=== PATIENT | male | born 1950 | race Caucasian/White ===

== ENCOUNTER 2020-05-27 05:13 | Inpatient (IN) ==
--- NOTE | 2020-05-04 11:40 | PAT Medication Instructions ---
Medication Instructions Date of Service May 04, 2020 Home Medications ascorbic acid (vitamin C) [Vitamin C] 1 g PO QAM aspirin 81 mg PO QAM atorvastatin [Lipitor] 80 mg PO HS ezetimibe [Zetia] 10 mg PO Q OTHER DAY metoprolol tartrate 50 mg PO BID Continue as directed ezetimibe [Zetia] 10 mg PO Q OTHER DAY DO NOT take the morning of surgery ascorbic acid (vitamin C) [Vitamin C] 1 g PO QAM Take morning of surgery With a small sip of water, OTHERWISE NOTHING TO EAT OR DRINK AFTER MIDNIGHT: aspirin 81 mg PO QAM metoprolol tartrate 50 mg PO BID Take evening before surgery atorvastatin [Lipitor] 80 mg PO HS metoprolol tartrate 50 mg PO BID Other Notes If you have any questions please call us at [phone] or [phone] or [phone] or [phone]
--- NOTE | 2020-05-05 11:41 | Anesthesiology Consultation ---
Date of Service May 05, 2020 Assessment & Plan (1) Encounter for pre-operative examination: Per PAT assessment on 05/05: Travel screen- Lives in [facility]. Travel to [facility] [address] and [facility]. Wears mask in public. No known COVID-19 positive contacts. No current COVID-19 related symptoms. Patient scheduled for preop protocol COVID-19 testing 05/23 (location [facility]). Awaiting results. - ETOH use: 5-6 beers/day (ETOH use only in afternoon/evening, no morning ETOH use) Chart Review Chart Review: Acceptable Risk for Surgery (pending COVID testing) and Patient seen in Pre Admission Testing Teaching & Discussion Pre-Anesthesia Teaching/Discussion Notes: Instructed NPO after midnight before surgery,except medications with 15 cc of water. Medication instructions p rovided according to the PAT guidelines. History Surgery Operation Date: 05/27/20 10:40 Proposed Procedures p Left Total Knee Arthroplasty - Duncan Mathias, Height/Weight Height: 6 ft 2 in Weight: 100.6 kg Allergies Allergy/AdvReac Type Severity Reaction Status Date / Time meperidine AdvReac Unknown Agitated Verified 05/02/20 12:22 Medications Home Medications Medication Instructions Recorded Confirmed Last Taken ascorbic acid (vitamin C) [Vitamin 1 g PO QAM 05/02/20 05/02/20 Unknown C] aspirin 81 mg PO QAM 05/02/20 05/02/20 Unknown atorvastatin [Lipitor] 80 mg PO HS 05/02/20 05/02/20 Unknown ezetimibe [Zetia] 10 mg PO Q OTHER DAY 05/02/20 05/02/20 Unknown metoprolol tartrate 50 mg PO BID 05/02/20 05/02/20 Unknown Past Medical History Medical History (Updated 05/06/20 @ 08:29 by Yaquelin Scruggs) CAD (coronary artery disease) stents x2 (1998)- managed by PCP, good functional status (no chest pain or sob with flight of stairs) Chronic right shoulder pain History of anxiety History of neuroma spinal ENTERPRISE (hard of hearing) HTN (hypertension) Hyperlipemia Myocardial Infarction 1998 Neuropathy Osteoarthritis Exercise / Class Metabolic Activity II 4-5 Yardwork/Stairs/Walk up hill (one flight of stairs (no chest pain, no sob)) Past Family History Family History Aunt Diabetes Uncle Diabetes Other No family history of adverse response to anesthesia Past Surgical History Surgical History (Updated 05/05/20 @ 11:58 by Yaquelin Scruggs) History of cardiac cath 1998 - [place] - 2 STENTS - no longer follows w/ cardio - PCP manages History of cataract surgery History of colonoscopy with polypectomy History of elbow surgery Rt History of foot surgery mult toe surgeries - BL History of hemorrhoidectomy History of incision and drainage Rt thumb (osteomyelitis) History of inguinal hernia repair History of laminectomy History of oral surgery Past Anesthesia History No Family Hx of Anesthesia Complications and Other (claustraphobic/"freaked out" with anesthesia induction with single surgery (no issues with other surgeries)) History of PONV No Hx of PONV and No Hx of Motion Sickness Social History Smoking Status: Never smoker Do You Dip or Chew Tobacco: No Hx Alcohol Use: Yes Alcohol type: beer alcohol intake frequency: 3 or more drinks per day (5-6 beers/day (ETOH use only in afternoon/evening, no morning ETOH use)) Hx Substance Use: No substance use type: does not use Review of Systems Patient denies chest pain, shortness of breath, dyspnea on exertion, joint pain, reflux, cough, wheezing, palpitations. Physical Exam PHYSICAL Full neck and c-spine range of motion. Full TMJ range of motion. TMD 3 finger breaths Mallampati Score 3 Lungs: clear throughout to auscultation Cardiac: regular rate and rhythm Spine: normal Carotid arteries: negative bruit Extremities: no edema Testing Laboratory Results 05/05/20 12:13 05/05/20 12:13 PT 11.2 Seconds (9.0-12.0) 05/05/20 12:13 INR 1.1 (0.9-1.1) 05/05/20 12:13 APTT 28.2 Seconds (21.0-31.0) 05/05/20 12:13 Blood Type O Negative 05/05/20 12:13 Antibody Screen NEGATIVE 05/05/20 12:13 Electrocardiogram Date: 05/05/20 SR with first degree AVB at 63bpm. Moderate voltage criteria for LVH, may be normal variant. Chest X-Ray Date: 05/05/20 Findings: + NAD
--- NOTE | 2020-05-05 12:33 | XRay Report ---
XR chest Pre-admission PA/Lat CLINICAL HISTORY: PAT preoperative COMPARISON STUDY: No previous studies for comparison. FINDINGS: The bones soft tissues and hemidiaphragms are normal. The cardiomediastinal silhouette is n ormal. The lungs are clear. The pulmonary vasculature is normal. IMPRESSION: Negative chest. ACT 112: Negative or not required by law. The above report was generated using voice recognition software. It may contain grammatical, syntax or spelling errors. Electronically signed by: Moises Chan M.D. 05/05/2020 12:31 PM
[2020-05-05 13:00] LABS: Basophils # (auto) 0.01 K/uL (0-0.2); Basophils % (auto) 0.1 %; Eosinophils # (auto) 0.21 K/uL (0-0.5); Eosinophils % (auto) 3.1 %; Hematocrit (blood only) 45.3 % (42-52); Hemoglobin 15.2 g/dL (14.0-18.0); Immature Granulocytes # (auto) 0.01 K/uL (0.00-0.02); Immature Granulocytes % (auto) 0.1 %; Lymphocytes # (auto) 1.25 K/uL (1.2-3.4); Lymphocytes % (auto) 18.5 %; Mean Corpuscular Hemoglobin 31.7 pg (25-34); Mean Corpuscular Hgb Conc 33.6 g/dL (32-36); Mean Corpuscular Volume 94.6 fL (80-100); Mean Platelet Volume 11.3 fL (7.4-10.4); Monocytes % (auto) 8.9 %; Neutrophils # (auto) 4.68 K/uL (1.4-6.5); Neutrophils % (auto) 69.3 %; Platelet Count 136 K/uL (130-400); RDW Coefficient of Variation 13.3 % (11.5-14.5); RDW Standard Deviation 45.7 fL (36.4-46.3); Red Blood Count 4.79 M/uL (4.7-6.1); White Blood Count 6.76 K/uL (4.8-10.8)
[2020-05-05 13:08] LABS: BUN Creatinine Ratio 18.7 (10-20); Calcium 9.3 mg/dl (8.5-10.1); Creatinine Clr Calc Pharmacy 113.1 ml/min; Est GFR (African American) 106.6; Est GFR (Non-African American) 91.9; Potassium 4.2 mmol/L (3.5-5.1)
[2020-05-05 13:18] LABS: INR 1.1 (0.9-1.1); Partial Thromboplastin Time 28.2 Seconds (21.0-31.0); Prothrombin Time 11.2 Seconds (9.0-12.0)
--- NOTE | 2020-05-06 04:56 | Electrocardiogram Report ---
Test Reason : Blood Pressure : / mmHG Vent. Rate : 063 BPM Atrial Rate : 063 BPM P-R Int : 214 ms QRS Dur : 086 ms QT Int : 434 ms P-R-T Axes : 068 052 009 degrees QTc Int : 444 ms Sinus rhythm with 1st degree A-V block Moderate voltage criteria for LVH, may be normal variant Borderline ECG When compared with ECG of 01-FEB-2006 16:04, Criteria for Inferior infarct are no longer Present Confirmed by Eduar Ames ([id number]) on 05/06/2020 4:56:11 AM Referred By: Duncan Mathias Confirmed By:Eduar Ames
--- NOTE | 2020-05-26 07:33 | History & Physical Report ---
Date of Service May 26, 2020 Assessment & Plan (1) Osteoarthritis of left knee: We will proceed with a left total knee arthroplasty. Postoperatively he will be started on aspirin for DVT prophylaxis and kept overnight in the hospital for postoperative medical management. He plans to use [facility] in [place] upon discharge. Noel is a low risk for joint placement surgery without any major comorbidities. Present on Admission?: Yes History of Present Illness Chief Complaint: Primary osteoarthritis of the left knee Primary Care Provider: Kirk Goodwin DO Noel is a pleasant 69-year-old male who is been dealing with chronic increasing left knee pain. X-rays and clinical examination are diagnostic for advanced osteoarthritis of the left knee. I gave him an injection in his knee which did not help much. He has a history of a right knee replacement done by Dr. Goodwin about 13 years ago. Unfortunately he still having a lot of left knee pain. After failing conservative treatment, he has elected proceed with a left total knee arthroplasty. Allergies Allergy/AdvReac Type Severity Reaction Status Date / Time meperidine AdvReac Unknown Agitated Verified 05/02/20 12:22 Home Medications Home Medications Medication Instructions Recorded Confirmed Type ascorbic acid (vitamin C) [Vitamin 1 g PO QAM 05/02/20 05/02/20 History C] aspirin 81 mg PO QAM 05/02/20 05/02/20 History atorvastatin [Lipitor] 80 mg PO HS 05/02/20 05/02/20 History ezetimibe [Zetia] 10 mg PO Q OTHER DAY 05/02/20 05/02/20 History metoprolol tartrate 50 mg PO BID 05/02/20 05/02/20 History Past Med/Surg History Medical History CAD (coronary artery disease) stents x2 (1998)- managed by PCP, good functional status (no chest pain or sob with flight of stairs) Chronic right shoulder pain History of anxiety History of neuroma spinal KAKE (hard of hearing) HTN (hypertension) Hyperlipemia Myocardial Infarction 1998 Neuropathy Osteoarthritis Surgical History History of cardiac cath 1998 - [place] - 2 STENTS - no longer follows w/ cardio - PCP manages History of cataract surgery History of colonoscopy with polypectomy History of elbow surgery Rt History of foot surgery mult toe surgeries - BL History of hemorrhoidectomy History of incision and drainage Rt thumb (osteomyelitis) History of inguinal hernia repair History of laminectomy History of oral surgery Family History Aunt Diabetes Uncle Diabetes Other No family history of adverse response to anesthesia Social History Smoking Status: Never smoker Second Hand Exposure: Yes (as a child); Do You Dip or Chew Tobacco: No; Hx Alcohol Use: Yes Alcohol type: beer Hx Substance Use: No Preferred Language: Croatian Communication Ability: Effective Systems Software Manager Required: No Beliefs That Will Affect Care: None Current Living Situation: Spouse Feels Safe at Home: Yes Safety Concerns: Feels Safe At This Time Review of Systems Review of Systems: All systems reviewed & are unremarkable except as noted in HPI & below Physical Exam Constitutional: WD/WN, vitals as above Eyes: PERRL, conjunctivae normal, anicteric sclerae ENMT: external ear and nose normal, oropharynx normal Neck: trachea midline, no thyromegaly Respiratory: normal respiratory effort Cardiovascular: RRR, no murmur, no edema Gastrointestinal (Abdomen): normal bowel sounds, soft, nontender, no hepatosplenomegaly Musculoskeletal: On physical examination of the left knee there is a trace effusion. There is near full range of motion and no evidence of instability. There is significant tenderness palpation along the medial and lateral joint lines and over the distal femoral condyles. Psychiatric: A+Ox3, euthymic affect Results & Data Results & Data ([facility]) Diagnostic Findings Radiographs of the left knee demonstrate advanced osteoarthritis with joint space narrowing osteophyte formation and [id number] articulation. PG Care Time/CCT Total # of Minutes Spent Total Time Spent with Patient: Total time spent is greater than 50% in coordination of care (as documented) at patient's floor/unit and/or counseling p atient: Coding Level of Care Code 08127 Initial Inpt Care Lvl 3 Diagnoses Osteoarthritis of left knee M17.12
[2020-05-27] MEDS ORDERED: CEFAZOLIN 2000MG 2,000 MG/15 ML SYR IV SCH (06:00)
[2020-05-27] MEDS ORDERED: FAMOTIDINE 20 MG TAB PO SCH (06:00)
[2020-05-27] MEDS ORDERED: LR 60ML/HR IV SCH (06:00)
[2020-05-27] MEDS ORDERED: dexAMETHasone 4 MG TAB PO SCH (06:00)
[2020-05-27] MEDS ORDERED: ACETAMINOPHEN 500 MG TAB PO SCH (06:00)
[2020-05-27] MEDS ORDERED: LR 500ML BOLUS, THEN 15ML/HR IV SCH (06:00)
[2020-05-27] MEDS ORDERED: GABAPENTIN 300 MG CAP PO SCH (06:00)
[2020-05-27] MEDS ORDERED: TRANEXAMIC ACID 1,000 MG **IV Pre-op IV SCH (06:00)
[2020-05-27] MEDS ORDERED: ROPIVACAINE 0.5% HCL/PF 150 MG, BUPIVACAINE 0.5% MPF 30 ML, EPINEPHrine 30MG/30ML (OR U... INSTIL SCH (06:00)
[2020-05-27] MEDS ORDERED: BUPIVACAINE 0.5 % 5 MG/1 ML PF 10ML VIAL ONE (06:29)
[2020-05-27] MEDS ORDERED: ROPIVACAINE 0.5% 5 MG/ML 30 ML VIAL ONE (06:29)
[2020-05-27] MEDS ORDERED: ORTHO JOINT ANESTHETIC ONE (06:39)
[2020-05-27] MEDS ORDERED: MIDAZOLAM HCL 1 MG/ML 2ML VIAL ONE (06:46)
[2020-05-27] MEDS: TRANEXAMIC ACID 1,000 MG **IV Intra-op IV SCH ×2 (06:50→08:30)
--- NOTE | 2020-05-27 06:53 | History & Physical Bridge Note ---
Date of Service May 27, 2020 History & Physical Bridge Note I have examined the patient, reviewed the History & Physical and in the interval since the performance of the History & Physical I have noted the following changes of clinical significance: no changes noted
[2020-05-27] MEDS ORDERED: PROPOFOL IV EMULSION 10 MG/ML 20 ML VIAL IV ONE ×2 (07:00→08:00)
[2020-05-27] MEDS ORDERED: LIDOCAINE HCL 2% 2 ML VIAL/AMP(20MG/ML) INFIL ONE ×2 (07:00→08:00)
[2020-05-27] MEDS ORDERED: ePHEDrine sulfate 50 MG/ML AMP IV PRN (07:50)
[2020-05-27] MEDS ORDERED: ATROPINE SULFATE 0.1 MG/ML 10ML SYR IV PRN (07:50)
--- NOTE | 2020-05-27 08:26 | Operative Report ---
PG Post Operative Report Pre & Post Diagnosis Operation Date: 05/27/20 07:00 Pre-Op Diagnosis: LEFT KNEE DEGENERATIVE JOINT DISEASE Post-Op Diagnosis: LEFT KNEE DEGENERATIVE JOINT DISEASE I identified the patient and participated in the time-out.: Yes Procedure Operation Date: 05/27/20 07:00 Actual Procedures p Left Total Knee Arthroplasty(Left) - Duncan Mathias DO Surgeon Duncan Mathias DO Cornetist Duncan Robbins PAC Estimated Blood Loss 10 Findings Consistent with Post-Op Diagnosis Specimens None Complications none Disposition Disposition: Recovery Room Indications Noel is a pleasant 69-year-old male who presented my office with chronic incr easing left knee pain. X-rays and clinical examination were diagnostic for advanced osteoarthritis of the left knee. After failing conservative treatment, he elected to proceed with a left total knee arthroplasty. Description of Procedure Implants used: I used a Coral Persona total knee arthroplasty system with a size 12 standard femur, H tibia, 35 patella, and a size 10 medial congruent polyethylene bearing. All components were cemented in place with Palacos G cement. Noel arrived [facility] for the above procedure. He was seen in the preoperative holding area and the operative extremity was identified and signed. He was given a preoperative antibiotic, TXA, a spinal anesthetic and an adductor nerve block. He was taken back to the operating room and laid on the table in supine position. He was given basic sedation. The operative knee was then prepped and draped in sterile fashion. A timeout was done, and the patient and the operative extremity was properly identified. A midline incision was made directly over the patella. Dissection was taken down to the extensor mechanism. A subvastus arthrotomy was used. The medial retinaculum was released and the fat pad was mostly excised. The knee was flexed and the ACL, PCL, and meniscus were removed. A drill was sent down the center of the femoral canal followed by an intramedullary dylan. Off that dylan a distal femoral cutting block was placed. 9 mm was resected off the distal femur at 5 of valgus. A posterior referencing AP sizing guide was then placed on the distal femur. The femur measured to be a size 12 standard. 2 drill holes were placed in 3 of external rotation. A 4-in-1 cutting block was then impacted into place. Anterior, posterior, and chamfer cuts were then made. The proximal tibia was then exposed. An external tibial alignment guide was placed. A tibial cut guide was then anchored in place to resect 2 mm off the low medial side. The proximal tibia was then resected. The tibia measured to be a size H. The tibial plate was then placed in the appropriate rotation and the tibia was drilled and punched. The posterior aspect of the knee was then opened up and any additional meniscus fragments and osteophytes were removed. Trial components were then placed. I used a size 10 medial congruent polyethylene insert. The knee was brought through a full range of motion and felt to be stable. The patella was then everted and 8 mm was resected off the posterior aspect of the patella. The patella measured to be a size 35. 3 peg holes were then drilled. A trial patella was placed. The knee was once again brought through a full range of motion and felt to be stable. Trial components were then removed. The surrounding soft tissues were injected with 100 cc of an orthopedic pain control cocktail. All components were then cemented into place with Palacos G cement. The final polyethylene insert was then snapped into place and the anterior bar was locked. Once cement was dry the tourniquet was deflated. Hemostasis was obtained. A dilute betadyne lavage was then done for 3 minutes. The joint was then irrigated with normal saline solution. The subvastus arthrotomy was then closed with #1 Vicryl suture. The skin was closed with 2-0 Vicryl, 3-0V lock suture, and jesse. A Silverlon dressing was placed. He was then transferred to a hospital bed and taken to the postanesthesia care unit in stable condition. He tolerated the procedure well. Duncan Robbins PA-C, was present for the entire procedure. He was critical for patient positioning, prepping, draping, retraction exposure, wound closure and application of sterile dressing. I attest to the content of the Intraoperative Record and any orders documented therein. Any exceptions are noted below.
--- NOTE | 2020-05-27 09:16 | XRay Report ---
XR knee LT 1 or 2V routine CLINICAL HISTORY: Surgical Post Op postoperative COMPARISON: None. DISCUSSION: Anatomic alignment post total left knee arthroplasty. Good contact between prosthetic and underlying bone. Expected soft tissue postoperative change IMPRESSION: Anatomic alignment post total left knee arthroplasty. ACT 112: Negative or not required by law. The above report was generated using voice recognition software. It may contain grammatical, syntax or spelling errors. Electronically signed by: Moises Chan M.D. 05/27/2020 9:14 AM
[2020-05-27] MEDS ORDERED: bisacodyL 10 MG SUPP PR PRN (09:57)
[2020-05-27] MEDS ORDERED: ONDANSETRON INJ 2 MG/ML 2 ML VIAL IV PRN (09:57)
[2020-05-27] MEDS ORDERED: HYDROmorphone INJ 0.5 MG/0.5 ML SYR IV PRN (09:57)
[2020-05-27] MEDS ORDERED: METOCLOPRAMIDE HCL INJ 5 MG/ML 2 ML VIAL IV PRN (09:57)
[2020-05-27] MEDS ORDERED: NALOXONE HCL 0.4 MG/1 ML VIAL/CARP IV PRN (09:57)
[2020-05-27] MEDS ORDERED: MAGNESIUM HYDROXIDE SUSP 30 ML UDC PO PRN (09:57)
[2020-05-27] MEDS ORDERED: OXYCODONE HCL IR 5 MG TAB (IMMEDIATE RELEASE) PO PRN (09:57)
--- NOTE | 2020-05-27 10:54 | Anesthesiology Progress Note ---
Date of Service May 27, 2020 Anesthesia Post Procedure Vital Signs Vital Signs: Temp Pulse Pulse Pulse Resp BP BP 05/27/20 10:40 59 L 16 131/80 05/27/20 10:09 36.8 C 57 L 16 130/82 05/27/20 09:35 36.8 C 62 16 128/75 05/27/20 09:20 60 14 117/74 05/27/20 09:10 36.5 C 59 L 14 118/68 05/27/20 09:00 63 16 123/70 05/27/20 08:54 36.4 C L 67 16 118/70 05/27/20 05:43 37.0 C 70 20 156/95 H Pulse Ox 05/27/20 10:40 95 05/27/20 10:09 95 05/27/20 09:35 93 05/27/20 09:20 96 05/27/20 09:10 96 05/27/20 09:00 97 05/27/20 08:54 99 05/27/20 05:43 98 Pain Intensity Left Knee: Pain Intensity: 0 Transfer of Care Handoff Completed per policy Notes Mental Status: alert / awake / arousable and participated in evaluation Patient Amnestic to Procedure: Yes Nausea / Vomiting: adequately controlled Pain: adequately controlled Airway Patency, RR, SpO2: stable & adequate BP & HR: stable & adequate Hydration State: stable & adequate Neuraxial Anesthesia: was administered and sensory block is resolving Anesthetic Complications: no major complications apparent
[2020-05-27] MEDS ORDERED: KETOROLAC 30 MG/ML VIAL IV SCH (11:00)
[2020-05-27] MEDS ORDERED: EZETIMIBE 10 MG TABLET PO SCH (11:00)
[2020-05-27] MEDS: ASPIRIN 81 MG ECTAB PO SCH ×2 (11:21→21:14)
[2020-05-27] MEDS: DOCUSATE SODIUM 100 MG CAP PO SCH ×2 (11:21→21:13)
[2020-05-27] MEDS: MULTIVITAMIN TAB PO SCH (11:21)
[2020-05-27] MEDS: KETOROLAC TROMETHAMINE 15 MG/ML VIAL IV SCH ×3 (11:21→22:25)
[2020-05-27] MEDS: METOPROLOL TARTRATE 50 MG TAB PO SCH ×2 (11:21→21:14)
[2020-05-27] MEDS: ACETAMINOPHEN 500 MG TAB PO SCH ×2 (13:20→21:13)
[2020-05-27] MEDS: SODIUM CHLORIDE 0.9% 1000ML 1,000 ML IV SCH ×2 (13:20→22:24)
[2020-05-27] MEDS: CEFAZOLIN 2000MG 2,000 MG/15 ML SYR IV SCH ×2 (14:32→22:29)
[2020-05-27] MEDS ORDERED: ATORVASTATIN 40 MG TAB PO SCH (21:00)
[2020-05-27] MEDS ORDERED: SENNA 8.6 MG TAB PO SCH (21:00)
[2020-05-28] MEDS: KETOROLAC TROMETHAMINE 15 MG/ML VIAL IV SCH ×2 (05:08→12:04)
[2020-05-28] MEDS: ACETAMINOPHEN 500 MG TAB PO SCH (05:09)
[2020-05-28 06:04] LABS: Hematocrit (blood only) 37.5 % (42-52); Hemoglobin 12.9 g/dL (14.0-18.0); Mean Corpuscular Hemoglobin 31.9 pg (25-34); Mean Corpuscular Hgb Conc 34.4 g/dL (32-36); Mean Corpuscular Volume 92.8 fL (80-100); Mean Platelet Volume 11.3 fL (7.4-10.4); Platelet Count 120 K/uL (130-400); RDW Coefficient of Variation 12.8 % (11.5-14.5); RDW Standard Deviation 43.1 fL (36.4-46.3); Red Blood Count 4.04 M/uL (4.7-6.1); White Blood Count 11.39 K/uL (4.8-10.8)
[2020-05-28 06:37] LABS: BUN Creatinine Ratio 26.7 (10-20); Calcium 8.7 mg/dl (8.5-10.1); Creatinine Clr Calc Pharmacy 113.7 ml/min; Est GFR (African American) 107.1; Est GFR (Non-African American) 92.4; Potassium 4.2 mmol/L (3.5-5.1)
--- NOTE | 2020-05-28 07:12 | Orthopedic Progress Note ---
Date of Service May 28, 2020 Assessment & Plan (1) Status post left knee replacement: Overall he is doing very well. Is not having much pain in the left knee. He has been up and ambulating to the bathroom. He is on aspirin for DVT prophylaxis. He will be seen by physical therapy this morning for ambulation and range of motion exercises. He can be discharged home later today. He will follow-up with orthopedics in 2 weeks. Present on Admission?: Yes Subjective Noel was seen and examined at bedside this morning. Overall he is doing very well. Is not having much pain in the left knee. Has been up and ambulating to the bathroom. He has no complaints. Physical Exam Musculoskeletal: On physical examination of the left knee, the dressing is clean and dry. His leg is in full extension. He has active dorsiflexion and plantarflexion of his left ankle. Results & Data ([facility]) Vital Signs (Past 12 Hours) Vital Signs Temp Pulse Resp BP Pulse Ox 05/28/20 03:15 36.4 C L 63 16 126/61 98 05/27/20 22:45 36.7 C 65 18 139/82 95 05/27/20 21:13 72 156/90 H 05/27/20 20:46 36.9 C 16 145/85 H Laboratory Results H & H 05/05/20 05/28/20 Range/Units 12:13 05:04 Hgb 15.2 12.9 L (14.0-18.0) g/dL Hct 45.3 37.5 L (42-52) % Coagulation 05/05/20 Range/Units 12:13 INR 1.1 (0.9-1.1) Diagnostic Findings Postoperative x-rays of the left knee show the prosthesis to be in anatomic alignment without any evidence of fracture, dislocation, or loosening. PG Care Time/CCT Total # of Minutes Spent Total Time Spent with Patient: Total time spent is greater than 50% in coordination of care (as documented) at patient's floor/unit and/or counseling patient: Coding Level of Care Code None Diagnoses Status post left knee replacement Z96.652
--- NOTE | 2020-05-28 07:13 | Discharge Summary ---
Date of Service May 28, 2020 Admission HPI Per Admitting Provider Noel is a pleasant 69-year-old male who is been dealing with chronic increasing left knee pain. X-rays and clinical examination are diagnostic for advanced osteoarthritis of the left knee. I gave him an injection in his knee which did not help much. He has a history of a right knee replacement done by Dr. Goodwin about 13 years ago. Unfortunately he still having a lot of left knee pain. After failing conservative treatment, he has elected proceed with a left total knee arthroplasty. Principal Diagnosis Left knee replacement Discharge Data Allergies Allergy/AdvReac Type Severity Reaction Status Date / Time meperidine AdvReac Intermediate Agitated Verified 05/27/20 05:36 Consultations 05/27/20 09:57 Consult Case Management - Discharge Planning Routine Procedures Performed Operation Date: 05/27/20 07:00 Actual Procedures p Left Total Knee Arthroplasty(Left) - Duncan Mathias DO Ordered Studies 05/27/20 05:00 US - OR guided needle placemen Routine Hospital Course (1) Status post left knee replacement: On May 27, 2020 Noel arrived at [facility] and underwent a left total knee arthroplasty without complication. He had a spinal anesthetic. Postoperatively he was started on aspirin for DVT prophylaxis and transferred to the general orthopedic floors. His hospital course was uneventful. On postop day #1 his H&H was stable and his pain was well controlled. He was able to participate well with physical therapy doing ambulation and range of motion exercises. He was then discharged home. He will follow-up with orthopedics in 2 weeks. Total Time Total Time Spent Total Time Spent (In Minutes): 20 Discharge Plan Discharge Items Patient Disposition: Home - Home Health Services Reason For Visit: LEFT KNEE DEGENERATIVE JOINT DISEASE Discharge Diagnosis: Left knee replacement Activity: As commented below Non-emergency contact: Surgeon Call non-emergency contact if: your wound has increased redness and your wound has increased drainage Follow-up/Referrals: Kirk Goodwin DO [Primary Care Provider] - Diet: Regular Addtl Attending Provider Instructions: Activity and Therapy Recommendations: * If you are using [facility] then therapy will be provided at your home until they feel you have accomplished all of your goals. * If you are using [facility] then Physical Therapy will be provided until they feel you are ready to start Outpatient Physical Therapy. * If you are not using home therapy then Outpatient Physical Therapy should start about 3-5 days from your day of surgery. Therapy will last about 6-10 weeks * It is important not to put a pillow under your knee when you are relaxing or s leeping. It is just as important to make sure you are getting your knee perfectly straight as it is to regain your knee bend. * You were shown a series of exercises in the hospital. Do these exercises three times each day including the exercises you were shown in physical therapy. * Get up and walk several times each day. For the first four weeks, try not to stand or walk for more than one hour at a time. If you do stand or walk for more than one hour, you will not hurt anything, but your leg will likely swell. * As you feel comfortable, you may change from the walker or crutches to a cane and then to independent walking. Medications: * Narcotic You will likely be sent home from the hospital with a prescription for the narcotic pain medication that worked best throughout your stay. * Aspirin Most patients will be required to take Aspirin 81mg twice a day for 6 weeks after surgery. This is obtained [id number] and a prescription is not necessary. * Other medications may be prescribed for specific circumstances. If you have any questions, please call the office at . * Resume previous home medications unless otherwise instructed TEDs/Elastic Stockings: The white elastic stockings help limit swelling and prevent blood clots from forming in your legs.~ The more you wear them, the more they work. Wear them for six weeks. Dressing Care: Leave the Silverlon dressing in place for 7 days. After 7 days you may remove the dressing. If the incision is not draining then you may leave the jesse open to air. If there is a little bit of drainage or if the jesse are getting stuck on your clothing then cover the incision with a dry dressing. The jesse will be removed at your 2 week follow-up appointment. Showering: You may shower with the Silverlon dressing in place. Let the shower spray hit the other shoulder. You can pat the plastic dry. If the dressing becomes wet underneath the plastic then simply remove the dressing. Keep the incision dry until you are 7 days out from the day of surgery. At that time you can shower with the jesse exposed. Let the soapy shower water run over the jesse and pat them dry. Do not scrub or soak the incision. Things To Watch For: * Drainage from the incision site that occurs more than one week after your surgery. * Increased redness at the incision site. * Fever above 102 degrees Fahrenheit. * Unusual chest pain or shortness of breath. * Call [facility] at with any of the above problems Follow-Up Visit: Follow-up with Dr. Mathias's PA (Duncan Robbins) 2-3 weeks after your day of surgery. He will remove your jesse and answer any questions. If you have any additional questions or concerns, Dr Mathias is usually in the office at the same time and will be available An appointment was probably scheduled when you signed-up for surgery in the office. If you have any questions call Office Instructions: More detailed instructions as well as Frequently Asked Questions were provided in a folder by our office when you signed-up for surgery. Please review these instructions when you get home. If you have any further questions or concerns, please feel free to call the office at [phone] Pending Studies at Discharge: No Stand-Alone Forms: My [facility] PBC Lasers, Smoking Cessation Medications and DC Order Prescriptions: New oxycodone-acetaminophen [Percocet] 5-325 mg tablet 1 tab PO Q6H PRN (Reason: pain) Qty: 30 RF: 0 Continued atorvastatin [Lipitor] 80 mg Tablet 80 mg PO HS RF: 0 ascorbic acid (vitamin C) [Vitamin C] 1,000 mg Tablet 1 g PO QAM RF: 0 metoprolol tartrate 50 mg Tablet 50 mg PO BID RF: 0 ezetimibe [Zetia] 10 mg Tablet 10 mg PO Q OTHER DAY RF: 0 Changed aspirin 81 mg Tablet,Delayed Release (Dr/Ec) 81 mg PO BID 42 Days Qty: 0 RF: 0 Discharge Orders: Discharge Order (Routine); Ordered 05/28/20 Ordered By: Duncan Mathias Admission Data Admit Date/Time: 05/27/20 08:54 Attending Provider: Duncan Mathias Admit Provider: Duncan Mathias Primary Care Provider: Kirk Goodwin Coding Level of Care Code D/C Day Management <30 mins Diagnoses Status post left knee replacement Z96.652
[2020-05-28] MEDS: METOPROLOL TARTRATE 50 MG TAB PO SCH (07:54)
[2020-05-28] MEDS: ASPIRIN 81 MG ECTAB PO SCH (07:54)
[2020-05-28] MEDS: MULTIVITAMIN TAB PO SCH (07:54)
[2020-05-28] MEDS: DOCUSATE SODIUM 100 MG CAP PO SCH (07:54)
[2020-05-28] MEDS ORDERED: dexAMETHasone 4 MG TAB PO SCH (08:00)
== END 2020-05-28 13:14 | disposition home or self-care (01) | DRG 470 ==
LOC: ASU 05:13 → 3E 08:54